=== PATIENT | female | born 1985 | race Caucasian/White ===

== ENCOUNTER 2020-05-22 10:10 | Inpatient (IN) | payer OTHER ==
[2020-05-22] MEDS ORDERED: ELECTROLYTE-148 SOLN 500 ML IV SCH ×2 (10:20→10:50)
[2020-05-22] MEDS ORDERED: CITRIC ACID/SODIUM CITRATE 30 ML UNIT-DOSE CUP PO ONE ×2 (10:20→14:41)
[2020-05-22 12:13] VITALS: BMI 31.1
[2020-05-22] MEDS ORDERED: morphine SULFATE/PF 0.5 MG/ML (2cc Syringe - QUVA) ONE (13:02)
[2020-05-22] MEDS ORDERED: PHENYLEPHRINE HCL 10 MG/1 ML SINGLE DOSE VIAL ONE (13:05)
[2020-05-22] MEDS ORDERED: ceFAZolin SODIUM 1 GM VIAL ONE (13:05)
[2020-05-22] MEDS ORDERED: KETOROLAC TROMETHAMINE 30 MG/1 ML VIAL ONE (13:05)
[2020-05-22] MEDS ORDERED: OXYTOCIN 10 UNITS/ML VIAL ONE ×2 (13:05→13:56)
[2020-05-22] MEDS ORDERED: morphine SULFATE/PF 0.5 MG/ML (2cc Syringe - QUVA) EP ONE (13:13)
[2020-05-22] MEDS ORDERED: ePHEDrine SULFATE 50 MG/1 ML AMPULE ONE (13:39)
[2020-05-22] MEDS: OXYTOCIN 20 UNITS in 0.9% NS 20 UNIT/1,000 ML INFUS.BAG IV SCH (13:41)
[2020-05-22] MEDS ORDERED: ONDANSETRON 4 MG/2 ML VIAL IVPUSH PRN (13:55)
[2020-05-22] MEDS ORDERED: ACETAMINOPHEN 1000 MG/100 ML VIAL (NON FORMULARY) IVPB ONE (13:57)
[2020-05-22] MEDS ORDERED: METHYLERGONOVINE MALEATE 0.2 MG/1 ML AMP IM PRN (14:33)
[2020-05-22] MEDS ORDERED: oxyCODONE HCL 5 MG TABLET PO PRN (14:33)
[2020-05-22] MEDS ORDERED: ACETAMINOPHEN 325 MG TABLET (FP) PO PRN (14:33)
[2020-05-22] MEDS ORDERED: IBUPROFEN 600 MG TABLET (FP) PO PRN (14:33)
[2020-05-22] MEDS ORDERED: ELECTROLYTE-148 SOLN 500 ML IV ONE (14:41)
[2020-05-22] MEDS ORDERED: ELECTROLYTE-148 SOLN 1,000 ML IV SCH (14:45)
[2020-05-22] MEDS ORDERED: OXYTOCIN 20 UNITS in 0.9% NS 20 UNIT/1,000 ML INFUS.BAG IV ONE (15:42)
[2020-05-22] MEDS ORDERED: ACETAMINOPHEN INJECTION 100 ML IVPB ONE (15:50)
[2020-05-22] MEDS: IBUPROFEN 800 MG/8 ML IJ IVPB PRN (20:03)
[2020-05-23] MEDS: IBUPROFEN 800 MG/8 ML IJ IVPB PRN ×2 (03:30→10:52)
[2020-05-23 08:18] LABS: BASO % 0.2 % (0-2.0); EOS % 0.4 % (0-4.5); HEMATOCRIT 29.3 % (32.4-45.2); HEMOGLOBIN 9.6 GM/dL (10.7-15.3); LYMPH % 13.9 % (8-40); MCH 27.1 pg (25.7-33.7); MCHC 32.9 g/dl (32.0-36.0); MEAN CELL VOLUME 82.5 fl (80-96); MEAN PLT VOLUME 7.8 fl (7.5-11.1); MONO % 7.5 % (3.8-10.2); PLATELET COUNT 150 K/MM3 (134-434); RBC 3.55 M/mm3 (3.60-5.2); RDW 14.3 % (11.6-15.6); WHITE BLOOD COUNT 8.7 K/mm3 (4.0-10.0)
[2020-05-23] MEDS: ACETAMINOPHEN 325 MG TABLET (FP) PO PRN ×2 (08:19→20:38)
[2020-05-23] MEDS: PRENATAL VITAMINS W/ FOLIC ACID TABLET (FP) PO SCH (10:52)
[2020-05-23] MEDS ORDERED: BISACODYL 10 MG SUPP.RECT RC PRN (14:33)
[2020-05-23] MEDS: oxyCODONE HCL 5 MG TABLET PO PRN (16:13)
[2020-05-23] MEDS: OXYTOCIN 20 UNITS in 0.9% NS 20 UNIT/1,000 ML INFUS.BAG IV SCH (19:36)
[2020-05-23] MEDS: IBUPROFEN 600 MG TABLET (FP) PO PRN (20:37)
[2020-05-23] MEDS: SIMETHICONE 80 MG TAB.CHEW (FP) PO PRN (20:38)
[2020-05-23] MEDS: SENNOSIDES/DOCUSATE COMBO (SENNA PLUS) TABLET (UD) PO PRN (20:38)
[2020-05-24] MEDS: oxyCODONE HCL 5 MG TABLET PO PRN ×4 (00:28→21:29)
[2020-05-24] MEDS: ACETAMINOPHEN 325 MG TABLET (FP) PO PRN ×4 (00:31→21:29)
[2020-05-24] MEDS: SIMETHICONE 80 MG TAB.CHEW (FP) PO PRN ×3 (00:31→21:30)
[2020-05-24] MEDS: IBUPROFEN 600 MG TABLET (FP) PO PRN ×4 (00:31→21:28)
[2020-05-24] MEDS: PRENATAL VITAMINS W/ FOLIC ACID TABLET (FP) PO SCH (11:11)
[2020-05-24] MEDS: SENNOSIDES/DOCUSATE COMBO (SENNA PLUS) TABLET (UD) PO PRN (21:28)
[2020-05-25] MEDS: ACETAMINOPHEN 325 MG TABLET (FP) PO PRN (08:36)
[2020-05-25] MEDS: SIMETHICONE 80 MG TAB.CHEW (FP) PO PRN (08:36)
[2020-05-25] MEDS: oxyCODONE HCL 5 MG TABLET PO PRN (08:37)
[2020-05-25] MEDS: PRENATAL VITAMINS W/ FOLIC ACID TABLET (FP) PO SCH (09:36)
[2020-05-25 15:03] VITALS: BP 108/68; PULSE 82; TEMP 98.1
== END 2020-05-25 12:00 | disposition home or self-care (01) | DRG 788 ==
LOC: JLDR 10:10 → J3W 16:00
PROVIDERS: ADMIT Obstetrics & Gynecology; ATTEND Obstetrics & Gynecology
PROC: 10D00Z1 Extraction of Products of Conception, Low, Open Approach (ICD-10-PCS; principal; 2020-05-22)
DX: O34.219 Maternal care for unspecified type scar from previous cesarean delivery (principal); Z3A.39 39 weeks gestation of pregnancy; Z37.0 Single live birth
CPT/HCPCS: 36415; 85025; 88307-TC; J0131